=== PATIENT | female | born 1985 | race Caucasian/White ===

== ENCOUNTER 2024-01-29 09:25 | Outpatient (CLI) | payer OTHER, SELFPAY ==
[2024-01-29 14:40] LABS: SARS PCR* Negative SARS-CoV-2 (Negative)
== END 2024-01-29 09:26 | disposition home or self-care (01) ==
LOC: KYNREF 09:25
PROVIDERS: PCP Nurse Practitioner Family; Visit Provider Nurse Practitioner Family
DX: J06.9 Acute upper respiratory infection, unspecified (principal)
CPT/HCPCS: 87635

== ENCOUNTER 2024-08-20 17:01 | Outpatient (CLI) | payer OTHER, SELFPAY ==
[2024-08-20 21:53] LABS: Chlamydia DNA Amplified* NOT DETECTED (No Detected); GC DNA Amplified* NOT DETECTED (No Detected)
== END 2024-08-20 17:02 | disposition home or self-care (01) ==
LOC: NFLDREF 17:02
PROVIDERS: PCP Nurse Practitioner Family; Visit Provider Registered Nurse
DX: Z11.3 Encounter for screening for infections with a predominantly sexual mode of transmission (principal)
CPT/HCPCS: 87491; 87591

== ENCOUNTER 2024-12-20 07:39 | Outpatient (CLI) | payer BC, SELFPAY | END 2024-12-20 07:40 | disposition home or self-care (01) | LOC: NFLDREF 12-21 03:36 | PROVIDERS: PCP Nurse Practitioner Family; Referring Provider Nurse Practitioner Family; Visit Provider Family Medicine | DX: E03.9 Hypothyroidism, unspecified (principal); R53.83 Other fatigue; Z13.220 Encounter for screening for lipoid disorders | CPT/HCPCS: 80053; 80061; 84443 ==

== ENCOUNTER 2024-12-25 10:53 | Outpatient (CLI) | payer BC, SELFPAY ==
[2024-12-27 04:33] LABS: HPV Source Cervical/Vag; HPV, High Risk by TMA Not Detected
== END 2024-12-25 10:54 | disposition home or self-care (01) ==
PROVIDERS: PCP Nurse Practitioner Family; Visit Provider Family Medicine
DX: Z12.4 Encounter for screening for malignant neoplasm of cervix (principal)
CPT/HCPCS: 87624; 87625; 88141; 88142

== ENCOUNTER 2025-05-14 15:21 | Outpatient (CLI) | payer BC, SELFPAY | END 2025-05-14 15:22 | disposition home or self-care (01) | PROVIDERS: PCP Family Medicine; Visit Provider Family Medicine | DX: E06.3 Autoimmune thyroiditis (principal); R53.83 Other fatigue; Z79.899 Other long term (current) drug therapy | CPT/HCPCS: 80053; 82306; 82607; 84443 ==

== ENCOUNTER 2025-09-18 14:44 | Outpatient (CLI) | payer BC, SELFPAY | END 2025-09-18 14:45 | disposition home or self-care (01) | LOC: NFLDREF 09-27 15:18 | PROVIDERS: PCP Family Medicine; Referring Provider Family Medicine; Visit Provider Family Medicine | DX: R79.89 Other specified abnormal findings of blood chemistry (principal); E55.9 Vitamin D deficiency, unspecified | CPT/HCPCS: 82306; 82607 ==